=== PATIENT | female | born 1930 | race African-American/Black ===

== ENCOUNTER → 2018-09-07 | Outpatient (CLI) | payer MEDICARE, OTHER ==
--- NOTE | 2018-09-07 15:47 | KCIC ---
MRI right thumb without contrast dated 09/07/2018. No comparison available. CLINICAL INDICATION: Palpable mass over the volar aspect of the IP joint of the thumb. History of breast cancer 4 years ago. TECHNIQUE: T1 and T2-weighted imaging performed in 3 planes to include the right thumb region. Patient refused intravenous contrast. FINDINGS: There is a nodular focus of signal abnormality along the volar aspect of the DIP joint of the thumb that measures approximately 0.8 x 1.1 x 1.0 cm. The lesion is hyperintense in signal on T2 and slightly hyperintense to muscle on T1. Postcontrast imaging was not performed. The lesion is located superficial to the distal aspect of the flexor tendon. There is no significant increased signal in the tendon substance. No evidence of tendon tear or tendon sheath fluid. There is partial abutment of the bone with no bony destructive changes or periostitis. Severe degenerative change of the first carpometacarpal joint with moderate degenerative change of the MP joint and mild degenerative change of the DIP joint. There is also mild degenerative change of the scaphotrapezial joint. Subchondral edema at the CMC joint and MTP joint of the thumb consistent with full-thickness cartilage loss and reactive changes. Visualized soft tissue structures are otherwise unremarkable. The visualized flexor and extensor tendons are grossly intact. IMPRESSION: 1. Indeterminate soft tissue mass along the volar aspect of the thumb DIP joint, incompletely evaluated in the absence of contrast material. Considerations would include nodular fasciitis or other inflammatory process. Benign or malignant soft tissue tumors or metastatic disease cannot be excluded. Recommend clinical correlation. Postcontrast imaging may provide additional information. 2. Degenerative changes as described. Electronically signed by: Davis Thornton MD (09/07/2018 3:43 PM) [id number]
== END | disposition home or self-care (01) ==
LOC: KCIC MRI 12:45
PROVIDERS: ATTEND Orthopaedic Surgery Hand Surgery
DX: M19.041 Primary osteoarthritis, right hand (principal); R22.31 Localized swelling, mass and lump, right upper limb
CPT/HCPCS: 73218